=== PATIENT | male | born 1975 | race Caucasian/White ===

== ENCOUNTER 2021-07-14 07:49 | Emergency (ER) | payer MEDICAID ==
[~2021-07-14] VITALS: Ht 170.2 cm; Wt 70.0 kg
[~2021-07-14 07:49] MED LIST: ATENOLOL; GABAPENTIN; GEMFIBROZIL; HYDROXIZINE; LAMOTRIGINE; SEROQUEL
[2021-07-14 07:52] VITALS: BP 144/98
== END 2021-07-14 08:31 | disposition left against medical advice (07) ==
LOC: ER 07:55
DX: R07.81 Pleurodynia (principal); Z53.21 Procedure and treatment not carried out due to patient leaving prior to being seen by health care provider

== ENCOUNTER 2021-07-14 08:17 | Emergency (ER) | payer MEDICAID ==
[~2021-07-14] VITALS: Ht 170.2 cm; Wt 68.0 kg
[2021-07-14] MEDS ORDERED: IBUPROFEN 600MG TABLET PO STA (09:30)
[2021-07-14] MEDS ORDERED: HALOPERIDOL LACTATE 5MG/ML VIAL IM STA (09:30)
[2021-07-14 09:59] LABS: BASOPHILS % 0.6 % (0.0-2.0); HEMOGLOBIN. 13.4 g/dL (14.0-18.0); LYMPHOCYTES % 13.6 % (20.0-50.0); MEAN CORPUSCULAR HEMOGLOBIN 29.6 pg (28.0-32.0); MEAN CORPUSCULAR VOLUME 87.8 fL (80.0-94.0); MEAN PLATELET VOLUME 6.8 fl (7.4-10.4); NEUTROPHILS % 76.8 % (40.0-76.0); PLATELET 443 x1000/uL (130-400); RED BLOOD CELL COUNT 4.55 mill/uL (4.7-6.1); RED CELL DISTRIBUTION WIDTH 14.4 % (11.6-14.6)
[2021-07-14 10:05] LABS: CHLORIDE 102 mEq/L (98-107)
[2021-07-14 10:11] LABS: ETHANOL BLOOD < 10 mg/dL
[2021-07-14 10:12] LABS: CLARITY URINE CLEAR (CLEAR); COLOR URINE DARK YELLOW (YELLOW); KETONES URINE 1+ (NEGATIVE); LEUKOCYTE ESTERASE URINE NEGATIVE (NEGATIVE); NITRITE URINE NEGATIVE (NEGATIVE); OCCULT BLOOD URINE NEGATIVE (NEGATIVE); PROTEIN URINE 1+ (NEGATIVE); SPECIFIC GRAVITY URINE 1.033 (1.005-1.030)
[2021-07-14 10:21] LABS: *AMPHETAMINES SCREEN URINE PRESUMTIVE POSITIVE (NEGATIVE); *BARBITURATES SCREEN URINE NEGATIVE (NEGATIVE)
[2021-07-14 10:23] LABS: *BENZODIAZEPINES SCREEN URINE NEGATIVE (NEGATIVE); *COCAINE SCREEN URINE NEGATIVE (NEGATIVE); CANNABINOID URINE SCREEN PRESUMTIVE POSITIVE (NEGATIVE); METHADONE URINE SCREEN NEGATIVE (NEGATIVE); OPIATES URINE SCREEN NEGATIVE (NEGATIVE); PHENCYCLIDINE URINE SCREEN NEGATIVE (NEGATIVE)
[2021-07-14] MEDS ORDERED: IBUPROFEN 400MG TABLET PO ONE (16:45)
[2021-07-14] MEDS ORDERED: IBUPROFEN 600MG TABLET PO ONE (20:45)
[2021-07-14] MEDS: GABAPENTIN 300MG CAPSULE PO SCH (20:48)
[2021-07-14] MEDS ORDERED: QUETIAPINE FUMARATE 50MG TABLET PO SCH (21:00)
[2021-07-15] MEDS ORDERED: IBUPROFEN 600MG TABLET PO ONE (03:45)
[2021-07-15] MEDS: GABAPENTIN 300MG CAPSULE PO SCH (06:15)
[2021-07-15] MEDS ORDERED: QUETIAPINE FUMARATE 50MG TABLET PO SCH (09:00)
[2021-07-15 09:18] VITALS: BP 116/65
== END 2021-07-15 09:20 | disposition home or self-care (01) ==
LOC: ER 09:16
DX: F33.9 Major depressive disorder, recurrent, unspecified (principal); R45.851 Suicidal ideations; R45.850 Homicidal ideations; R44.0 Auditory hallucinations; T43.621A Poisoning by amphetamines, accidental (unintentional), initial encounter; F15.188 Other stimulant abuse with other stimulant-induced disorder; F16.10 Hallucinogen abuse, uncomplicated; F12.10 Cannabis abuse, uncomplicated; R07.89 Other chest pain; Z20.822 Contact with and (suspected) exposure to COVID-19; Y92.89 Other specified places as the place of occurrence of the external cause; Z75.1 Person awaiting admission to adequate facility elsewhere; F91.8 Other conduct disorders; Z91.51 Personal history of suicidal behavior
CPT/HCPCS: 36415; 71045; 80053; 80305; 80307; 80320; 80329; 81003; 85025; 96372; 99285; C9803; J1630; U0003; U0005; G0480